=== PATIENT | female | born 1990 | race Two or more races ===

== ENCOUNTER 2022-12-25 00:08 | Emergency (ER) | payer OTHER, SELFPAY ==
--- NOTE | ~2022-12-25 | XR_ITS ---
EXAMINATION: XR CHEST CLINICAL INFORMATION: Acute chest pain COMPARISON: None available. TECHNIQUE: 2 views of the chest were obtained. FINDINGS: The lungs are clear with no focal consolidation. No evidence of pneumothorax, pulmonary edema, or pleural effusions. The cardiomediastinal silhouette is unremarkable. No acute osseous findings. XR/XR chest 2V IMPRESSION: No acute cardiopulmonary findings.
--- NOTE | 2022-12-25 00:15 | ECG_ITS ---
Test Reason : cp Blood Pressure : / mmHG Vent. Rate : 079 BPM Atrial Rate : 079 BPM P-R Int : 156 ms QRS Dur : 082 ms QT Int : 368 ms P-R-T Axes : 050 012 025 degrees QTc Int : 421 ms Normal sinus rhythm Normal ECG No previous ECGs available Referred By: Generic ED Physician Electronically Signed By:ERIKA BURLESON
[2022-12-25 00:24] VITALS: BP 111/54; PULSE 77; RESP 18; TEMP 36.7; O2SAT 100; BMI 35.6
[2022-12-25 00:40] LABS: MANUAL DIFF FLAG NO
[2022-12-25 00:41] LABS: Basophils Percent Auto 0.4 % (0-2); Eosinophils Absolute Auto 0.2 X10*3/uL (0.0-0.4); Eosinophils Percent Auto 2.7 % (0-4); Hematocrit 34.3 % (37.0-47.0); Hemoglobin 11.4 g/dl (12.0-16.0); Imm Gran Abs Auto 0.01 X10*3/uL (0.00-0.03); Imm Gran Pct Auto 0.2 % (0.0-0.4); Lymphocytes Absolute Auto 2.3 X10*3/uL (1.2-4.9); Lymphocytes Percent Auto 41.2 % (20-40); Mean Corpuscular HGB Conc 33.2 g/dl (31.0-35.0); Mean Corpuscular Hemoglobin 27.1 pg (27.0-33.0); Mean Corpuscular Volume 81.7 fL (80.0-98.0); Mean Platelet Volume 11.3 fL (9.4-12.3); Monocytes Absolute Auto 0.5 X10*3/uL (0.1-1.2); Monocytes Percent Auto 8.4 % (2-11); Neutrophils Absolute Auto 2.6 x10*3/uL (2.0-8.3); Neutrophils Percent Auto 47.1 % (45-73); Platelet Count 211 X10*3/uL (160-400); Red Cell Distribution Width 14.1 % (11.0-16.0); White Blood Count 5.5 X10*3/uL (4.8-10.8)
[2022-12-25 00:49] LABS: D Dimer High Sensitivity 235 NG/ML
[2022-12-25 00:53] LABS: Anion Gap 11 (12-20); Blood Urea Nitrogen 12 mg/dL (9-16); Calcium 8.8 mg/dL (8.4-10.2); Carbon Dioxide 24 mmol/L (22-29); Chloride 110 mmol/L (96-108); Creatinine Clr Calc Pharmacy 88.6; Estimated Glomerular Filt Rate > 60; Glucose Random 117 mg/dL (60-115); Potassium 3.8 mmol/L (3.3-5.1); Sodium 141 mmol/L (135-145)
[2022-12-25 01:05] VITALS: BP 119/56; PULSE 77; RESP 19; TEMP 36.4; O2SAT 100
[2022-12-25 01:08] LABS: Troponin-I High Sensitivity < 2.7 ng/L (<3.5-17.0)
--- NOTE | 2022-12-25 01:21 | ED.CHESTPAIN ---
HPI - Chest Pain General Chief Complaint: Chest Pain Stated Complaint: Chest Pain/Shortness of breath/Headache Time Seen by Provider: 12/25/22 01:12 Source: patient Mode of arrival: ambulatory Limitations: no limitations History of Present Illness HPI narrative: 32-year-old female with no major medical problems presents with chest pain and headache. Symptoms started approximately 8:00 a.m. this evening. The chest pain is substernal. She rates as moderate. It is sharp and intermittent. It radiates to bilateral shoulders. It is not associated with exertion. There are no clear relieving or exacerbating features. She denies any nausea, vomiting or shortness of breath associated with a. She has no history of PE or DVT. She does not smoke and she is not on an any oral contraceptives. She has no immediate relatives who have had a history of blood clots, DVT or PE. Patient has had this in the past but is typically associated with a panic attack. She denies having anxiety prior to her symptoms. Patient is also complaining of a generalized headache that is moderate in nature. It is not associated with photo or phonophobia. There is no neck pain or stiffness. She denies any fevers or chills. She denies any cough or congestion. Prior to arrival she took Tylenol 500 mg which did help her chest pain and her headache. Related Data Allergies Allergy/AdvReac Type Severity Reaction Status Date / Time oxycodone Allergy Hives Verified 12/25/22 00:29 [facility] Social History Social History Advance Directives: No Advance Directives Information Provided: Yes Physical Exam Vital Signs: Vital Signs: Last Vital Signs Temp 97.6 F 12/25/22 01:05 Pulse 77 12/25/22 01:05 Resp 19 12/25/22 01:05 BP 119/56 L 12/25/22 01:05 Pulse Ox 100 12/25/22 01:05 O2 Del Method Room Air 12/25/22 01:05 BMI result Body Mass Index 35.6 GEN: Well developed, no acute distress, alert, oriented HEENT: Normocephalic, atraumatic, normal external ears, nose appears normal, no oropharyngeal edema or exudates Eyes: Normal to appearance Neck: Supple, no lymphadenopathy Respiratory: Talks in complete sentences, no respiratory distress, clear to auscultation bilaterally Cardiovascular: Regular rate and rhythm, no murmurs rubs or gallops Abdomen: Soft, nontender, nondistended, no guarding, no rebound Back: No CVA tenderness Extremities: No clubbing cyanosis or edema Neurologic: No focal neurologic deficits, cranial nerves 2-12 intact, strength is 5/5 bilaterally Skin: No rash Course Course Course Narrative: 32-year-old female presents with chest pain and headache. Her examination is unremarkable. There is no evidence of meningitis. Her headache was not sudden onset, doubt subarachnoid hemorrhage. This is most likely a tension headache or sinus related headache. Patient is also complaining of chest pain. The pain is sharp and intermittent. Not associated with exertion and is more of an atypical chest pain. She has no cardiac risk factors and no significant family history of coronary artery disease or early sudden cardiac . There is no history of PE or DVT in her family or herself. Her perc criteria are 0. Her D-dimer is negative. Cardiac enzymes are also negative. This is approximately 5 hours since the onset of her symptoms. Coupled with an EKG that is nonischemic, is unlikely to be acute coronary syndrome or cardiac chest pain. At this point, patient should have a chest x-ray and the re-evaluation. Will provide patient with Tylenol and ibuprofen. Reevaluation(s) Reevaluation #1: Chest x-ray did not reveal any acute cardiopulmonary disease. Patient is feeling better at this time. I do not believe patient is having acute coronary syndrome. She was instructed to take Tylenol and ibuprofen as needed for pain and discomfort. However, should her symptoms worsen or become concerning in any way, she should return for re-evaluation immediately. Time: 02:02 Medications Administered Discontinued Medications Generic Name Dose Route Start Last Admin Trade Name Richq PRN Reason Stop Dose Admin Acetaminophen 650 mg 12/25/22 01:37 12/25/22 01:43 Acetaminophen 325 Mg Tablet PO 12/25/22 01:38 650 mg ONCE ONE Administration Ibuprofen 600 mg 12/25/22 01:37 12/25/22 01:43 Ibuprofen 600 Mg Tablet PO 12/25/22 01:38 600 mg ONCE ONE Administration Medical Decision Making Medical Decision Making MDM Narrative: 32-year-old female presents with chest pain and headache. Her examination is unremarkable. There is no evidence of meningitis. Her headache was not sudden onset, doubt subarachnoid hemorrhage. This is most likely a tension headache or sinus related headache. Patient is also complaining of chest pain. The pain is sharp and intermittent. Not associated with exertion and is more of an atypical chest pain. She has no cardiac risk factors and no significant family history of coronary artery disease or early sudden cardiac . There is no history of PE or DVT in her family or herself. Her perc criteria are 0. Her D-dimer is negative. Cardiac enzymes are also negative. This is approximately 5 hours since the onset of her symptoms. Coupled with an EKG that is nonischemic, is unlikely to be acute coronary syndrome or cardiac chest pain. At this point, patient should have a chest x-ray and the re-evaluation. Will provide patient with Tylenol and ibuprofen Differential Diagnosis Differential Diagnoses: The differential diagnosis associated with the presentation includes (Atypical chest pain, has occurred, reflux, panic/anxiety, cardiac, pulmonary, PE, headache, migraine, tension headache) Headache, atypical chest pain Admission/Observation Consideration of admission/observation: Escalation of care including admission/observation considered Lab Data MDM Lab Attestation statement: I reviewed the patient's lab results. 12/25/22 00:35 12/25/22 00:35 Labs: Lab Results 12/25/22 12/25/22 12/25/22 Range/Units 00:35 00:35 00:35 WBC 5.5 (4.8-10.8) X10*3/uL RBC 4.20 (4.20-5.50) X10*6/uL Hgb 11.4 L (12.0-16.0) g/dl Hct 34.3 L (37.0-47.0) % MCV 81.7 (80.0-98.0) fL MCH 27.1 (27.0-33.0) pg MCHC 33.2 (31.0-35.0) g/dl RDW 14.1 (11.0-16.0) % Plt Count 211 (160-400) X10*3/uL MPV 11.3 (9.4-12.3) fL Immature Gran % (Auto) 0.2 (0.0-0.4) % Neut % (Auto) 47.1 (45-73) % Lymph % (Auto) 41.2 H (20-40) % [place] % (Auto) 8.4 (2-11) % Eos % (Auto) 2.7 (0-4) % Baso % (Auto) 0.4 (0-2) % Lymph # (Auto) 2.3 (1.2-4.9) X10*3/uL [place] # (Auto) 0.5 (0.1-1.2) X10*3/uL Eos # (Auto) 0.2 (0.0-0.4) X10*3/uL Baso # (Auto) 0.0 (0.0-0.2) X10*3/uL Abs Immat Gran (auto) 0.01 (0.00-0.03) X10*3/uL Absolute Neuts (auto) 2.6 (2.0-8.3) x10*3/uL Absolute Nucleated RBC 0.000 (0.0-0.012) X10*3/uL Nucleated RBC % (auto) 0.0 (0.0-0.2) /100WBC D-Dimer High Sensitivty NG/ML Sodium 141 (135-145) mmol/L Potassium 3.8 (3.3-5.1) mmol/L Chloride 110 H (96-108) mmol/L Carbon Dioxide 24 (22-29) mmol/L Anion Gap 11 L (12-20) BUN 12 (9-16) mg/dL Creatinine 0.75 (0.5-1.4) mg/dL Estim Creat Clear Calc 88.6 Estimated GFR > 60 Random Glucose 117 H (60-115) mg/dL Calcium 8.8 (8.4-10.2) mg/dL Troponin I High Sens < 2.7 (<3.5-17.0) ng/L 12/25/22 Range/Units 00:35 WBC (4.8-10.8) X10*3/uL RBC (4.20-5.50) X10*6/uL Hgb (12.0-16.0) g/dl Hct (37.0-47.0) % MCV (80.0-98.0) fL MCH (27.0-33.0) pg MCHC (31.0-35.0) g/dl RDW (11.0-16.0) % Plt Count (160-400) X10*3/uL MPV (9.4-12.3) fL Immature Gran % (Auto) (0.0-0.4) % Neut % (Auto) (45-73) % Lymph % (Auto) (20-40) % [place] % (Auto) (2-11) % Eos % (Auto) (0-4) % Baso % (Auto) (0-2) % Lymph # (Auto) (1.2-4.9) X10*3/uL [place] # (Auto) (0.1-1.2) X10*3/uL Eos # (Auto) (0.0-0.4) X10*3/uL Baso # (Auto) (0.0-0.2) X10*3/uL Abs Immat Gran (auto) (0.00-0.03) X10*3/uL Absolute Neuts (auto) (2.0-8.3) x10*3/uL Absolute Nucleated RBC (0.0-0.012) X10*3/uL Nucleated RBC % (auto) (0.0-0.2) /100WBC D-Dimer High Sensitivty 235 NG/ML Sodium (135-145) mmol/L Potassium (3.3-5.1) mmol/L Chloride (96-108) mmol/L Carbon Dioxide (22-29) mmol/L Anion Gap (12-20) BUN (9-16) mg/dL Creatinine (0.5-1.4) mg/dL Estim Creat Clear Calc Estimated GFR Random Glucose (60-115) mg/dL Calcium (8.4-10.2) mg/dL Troponin I High Sens (<3.5-17.0) ng/L Independent Interpretation I performed an independent interpretation of an: EKG (Normal sinus rhythm heart rate 79, normal intervals, no acute ST elevations or depressions, nonspecific T-wave change new lead 3) and Plain X-Ray (Chest: No acute cardiopulmonary disease) Discharge Plan Discharge Clinical Impression: Atypical chest pain, Headache Patient Disposition: Home, Self-Care Instructions: Chest Pain (ED), Acute Headache (DC) Referrals: Tammy Simmons MD [Primary Care Provider] -
[2022-12-25] MEDS: Acetaminophen 325 MG TABLET 650 MG PO (01:43)
[2022-12-25] MEDS: Ibuprofen 600 MG TABLET PO (01:43)
== END 2022-12-25 02:25 | disposition home or self-care (01) ==
PROVIDERS: Emergency Provider Emergency Medicine; PCP Internal Medicine
DX: R07.89 Other chest pain (principal); R51.9 Headache, unspecified
CPT/HCPCS: 36415; 71046; 80048; 84484; 85025; 85379; 93005; 99284

== ENCOUNTER 2023-09-10 23:41 | Emergency (ER) | payer OTHER, SELFPAY ==
[2023-09-10 23:54] VITALS: BP 130/75; PULSE 81; RESP 18; TEMP 36.8; O2SAT 99; BMI 37.6
--- NOTE | 2023-09-10 23:58 | ED.ABDPAIN ---
HPI - Abdominal Pain General Chief Complaint: Abdominal Pain Stated Complaint: dizziness x3 days, cramps, possible uti Time Seen by Provider: 09/10/23 23:50 Source: patient Mode of arrival: ambulatory Limitations: no limitations History of Present Illness HPI narrative: a 32-year-old female came in for evaluation frequency urination, no dysuria, no blood in the urine, patient declined chance of being , patient also had been complaining of lower abdominal pain radiates to the back, Sexually active with 1 partner no risk for STDs no vaginal bleed or discharge. Patient also been having dizziness / lightheadedness for the past 2- 3 days, no LOC, no CP, no SOB. Related Data Allergies Allergy/AdvReac Type Severity Reaction Status Date / Time oxycodone Allergy Hives Verified 12/25/22 00:29 shellfish derived Allergy Hives Verified 09/10/23 23:56 Review of Systems Review of Systems All other systems are reviewed and are negative Constitutional: Reports as per HPI and Reports no additional constitutional complaints Eyes: Reports as per HPI and Reports no additional eye complaints Reports system reviewed and no additional complaints, except as documented Cardiovascular: Reports as per HPI and Reports no additional cardiovascular complaints Respiratory: Reports as per HPI and Reports no additional respiratory complaints Gastrointestinal: Reports as per HPI and Reports no additional gastrointestinal complaints Genitourinary: Reports no additional female genitourinary complaints Musculoskeletal: Reports no additional musculoskeletal complaints Skin/Breast: Reports system reviewed and no additional complaints, except as docu Psychiatric: Reports no additional psychiatric complaints Endocrine: Reports no additional endocrine complaints Hematologic/Lymphatic: Reports no additional hematologic/lymphatic complaints Allergic/Immunologic: Reports no additional allergic/immunologic complaints Reports system reviewed and no additional complaints, except as documented and Reports Abnormal speech present [facility] Social History Social History Advance Directives: No Advance Directives Information Provided: No Physical Exam ED Vital Signs: Vital Signs - 24 hr 09/10/23 23:54 09/11/23 00:00 09/11/23 02:36 Temperature 98.3 F 98.4 F 98.3 F Pulse Rate 81 86 80 Respiratory Rate 18 16 16 Blood Pressure 130/75 118/64 110/56 L Pulse Oximetry 99 96 100 Oxygen Delivery Method Room Air Room Air Room Air BMI result Body Mass Index 37.6 Vital signs have been reviewed and appear to be correct. Blood pressure elevated. Heart rate normal. Respiratory rate normal. Temperature normal. Oxygen saturation normal. Appearance: Alert. Oriented X3. No acute distress. Head: Normal external exam. Normocephalic. Atraumatic. No Roberts signs noted. No raccoon eyes noted Eyes: PERRLA. EOMI. Conjunctiva and sclera normal. Eyelids normal. ENT: TM's Normal. Pharynx normal. Uvula midline. Moist mucous membranes. No trismus noted. No drooling noted. No muffled voice noted. Neck: Normal inspection. Neck supple. FROM. No adenopathy. Thyroid Normal. No meningeal signs. No neck mass noted. CVS: Normal heart rate and rhythm. Heart sound normal. No murmurs noted. Pulses normal throughout. Respiratory: No respiratory distress. Painless inspiration. Breath sounds normal. No wheezes/rales/rhonchi noted. Chest nontender. No accessory muscle usage noted or decreased air movement noted. Abdomen: Soft , mild suprapubic tenderness, no guarding, no rebound tenderness.Bowel sounds normal in all 4 quadrants. No distention noted. No organomegaly noted. No visible injury noted. Back: No CVA tenderness. Full range of motion noted. Skin: Skin warm and dry. Normal skin color. Normal skin turgor. No rashes/lesions/lacerations noted. Extremities: No lower extremity edema. Extremities exhibit normal range of motion. Extremities nontender. Neuro: Oriented X 3. Cranial nerve exam: II-XII are grossly intact No motor deficit. No sensory deficit. Reflexes normal. Course Reevaluation(s) Reevaluation #1: Abdominal pain with UTI symptoms. Labs today at baseline with no UA evidence of UTI. Will reassure the patient and instructed follow-up with PCP if symptoms persist. Time: 01:23 Medical Decision Making Differential Diagnosis Differential Diagnoses: The differential diagnosis associated with the presentation includes ( Acute appendicitis, colitis, diverticulitis, obstructive uropathy, UTI, pyelonephritis, .) Admission/Observation Consideration of admission/observation: Escalation of care including admission/observation considered Lab Data MDM Lab Attestation statement: I reviewed the patient's lab results. 09/11/23 00:08 09/11/23 00:08 Labs: Lab Results 09/11/23 09/11/23 Range/Units 00:08 00:46 WBC 7.3 (4.8-10.8) X10*3/uL RBC 4.49 (4.20-5.50) X10*6/uL Hgb 11.9 L (12.0-16.0) g/dl Hct 36.3 L (37.0-47.0) % MCV 80.8 (80.0-98.0) fL MCH 26.5 L (27.0-33.0) pg MCHC 32.8 (31.0-35.0) g/dl RDW 14.3 (11.0-16.0) % Plt Count 211 (160-400) X10*3/uL MPV 11.3 (9.4-12.3) fL Immature Gran % (Auto) 0.3 (0.0-0.4) % Neut % (Auto) 52.0 (45-73) % Lymph % (Auto) 36.6 (20-40) % [place] % (Auto) 8.9 (2-11) % Eos % (Auto) 1.9 (0-4) % Baso % (Auto) 0.3 (0-2) % Lymph # (Auto) 2.7 (1.2-4.9) X10*3/uL [place] # (Auto) 0.7 (0.1-1.2) X10*3/uL Eos # (Auto) 0.1 (0.0-0.4) X10*3/uL Baso # (Auto) 0.0 (0.0-0.2) X10*3/uL Abs Immat Gran (auto) 0.02 (0.00-0.03) X10*3/uL Absolute Neuts (auto) 3.8 (2.0-8.3) x10*3/uL Absolute Nucleated RBC 0.000 (0.0-0.012) X10*3/uL Nucleated RBC % (auto) 0.0 (0.0-0.2) /100WBC Sodium 136 (135-145) mmol/L Potassium 3.8 (3.3-5.1) mmol/L Chloride 107 (96-108) mmol/L Carbon Dioxide 21 L (22-29) mmol/L Anion Gap 12 (12-20) BUN 13 (9-16) mg/dL Creatinine 0.66 (0.5-1.4) mg/dL Estim Creat Clear Calc 103.7 Estimated GFR > 60 Random Glucose 102 (60-115) mg/dL Calcium 9.1 (8.4-10.2) mg/dL Total Bilirubin 0.2 (0.0-1.0) mg/dL Direct Bilirubin < 0.2 (0.0-0.5) mg/dL AST 14 (5-31) U/L ALT 14 (0-31) U/L Alkaline Phosphatase 59 (39-117) U/L Total Protein 7.5 (6.5-8.0) g/dL Albumin 4.1 (3.5-5.0) g/dL Lipase 53 (8-78) U/L Urine Color Yellow Urine Appearance Clear Urine pH 5.5 (5.0-9.0) Ur Specific [place] 1.020 (1.005-1.025) Urine Protein Negative (Neg-Trace) mg/dL Urine Glucose (UA) Negative (Negative) mg/dL Urine Ketones Negative (Negative) mg/dL Urine Blood Negative (Negative) Urine Nitrite Negative (Negative) Ur Leukocyte Esterase Negative (Negative) Urine Test NEGATIVE (NEGATIVE) Independent Interpretation I performed an independent interpretation of an: CT Scan ( No acute intra-abdominal pathology.) Radiology Impression Discussion of test interpretation with radiology: I have reviewed the radiologist's reading. (1. Small tubular structure along the cecum is likely a normal appendix. No infiltrative change in the right lower quadrant. 2. There is a 2.5 mm nonobstructing calculus lower pole left kidney. There is no hydronephrosis. 3. Diffuse fatty change of the liver. ) Discharge Plan Discharge Clinical Impression: Abdominal pain Patient Disposition: Home, Self-Care Instructions: Abdominal Pain (ED) Referrals: Tammy Simmons MD [Primary Care Provider] -
[2023-09-11] VITALS: BP 118/64; PULSE 86; RESP 16; TEMP 36.9; O2SAT 96
--- NOTE | 2023-09-11 00:15 | MHC.EDTECH ---
THIS PCT JUST ASSUMED CARE OF PT ,EKG TAKEN AND WAS READ BY PROVIDER ,VITALS TAKEN ,PT WAS HOOKED UP TO ENGINEERING JOB TITLES,PATIENT GOT CHANGE INTO HOSPITAL ATTIRE ,BLOOD DRAWN AND SENT TO LAB .
--- NOTE | 2023-09-11 00:48 | MHC.EDTECH ---
PATIENT URINE SAMPLE COLLECTED AND SENT TO LAB .
[2023-09-11 02:36] VITALS: BP 110/56; PULSE 80; RESP 16; TEMP 36.8; O2SAT 100
== END 2023-09-11 04:23 | disposition home or self-care (01) ==
PROVIDERS: Emergency Provider Emergency Medicine; PCP Internal Medicine
DX: R10.30 Lower abdominal pain, unspecified (principal); R42 Dizziness and giddiness; R35.0 Frequency of micturition
CPT/HCPCS: 36415; 74176; 80048; 80076; 81003; 81025; 83690; 85025; 93005; 99284

== ENCOUNTER → 2023-09-10 23:56 | Outpatient (BNV) | payer OTHER, SELFPAY | PROVIDERS: Emergency Provider Emergency Medicine; PCP Internal Medicine; Visit Provider Internal Medicine Cardiovascular Disease | DX: R42 Dizziness and giddiness (principal) | CPT/HCPCS: 93010 ==

== ENCOUNTER 2023-09-27 13:20 | Emergency (ER) | payer OTHER, SELFPAY ==
--- NOTE | ~2023-09-27 | US_ITS ---
EXAMINATION: US PELVIS CLINICAL INFORMATION: Right lower quadrant pain. Vaginal bleeding. COMPARISON: None available. TECHNIQUE: Ultrasound of the pelvis is performed using transabdominal transducers along with Doppler. Patient declined transvaginal imaging. FINDINGS: Uterus: Uterus is anteverted and retroflexed. The uterus is anteverted and measures 10.9 x 4.5 x 7.2 cm. The double wall endometrial thickness is 0.6 mm. The uterus is smooth in contour and has normal myometrial echogenicity. No visible fibroid. Adnexa: Both ovaries are visualized. There is normal color flow to the adnexa. There is no ovarian torsion. There is no pelvic ascites or fluid collection. Right ovary measures 3.1 x 2.1 x 2.7 cm. 9.2 mL Left ovary measures 2.7 x 2 x 1.9 cm. 5.4 mL US/US pelvic complete IMPRESSION: Normal ultrasound of pelvis.
[2023-09-27 13:32] VITALS: BP 138/77; PULSE 98; RESP 19; TEMP 36.6; O2SAT 98; BMI 37.7
--- NOTE | 2023-09-27 13:33 | ED_ITS ---
HPI - Abdominal Pain General Chief Complaint: Abdominal Pain Stated Complaint: Abd Pain Radiating to Back Time Seen by Provider: 09/28/23 01:31 Source: patient Mode of arrival: ambulatory History of Present Illness HPI narrative: 33-year-old female reports lower abdominal discomfort and urinary frequency but denies any fevers, chills and on further questioning she states that she has had bilateral discomfort that seems to wrap around the middle of her abdomen at the level of the umbilicus. Related Data Allergies Allergy/AdvReac Type Severity Reaction Status Date / Time oxycodone Allergy Hives Verified 09/27/23 13:31 shellfish derived Allergy Hives Verified 09/27/23 13:31 Review of Systems Review of Systems Pertinent positives and negatives as stated in HPI PMFSH Past Medical History Source: nursing notes reviewed Social History Social History Advance Directives: No Advance Directives Information Provided: No Physical Exam ED Vital Signs: Vital Signs - 24 hr 09/27/23 13:32 09/28/23 01:07 09/28/23 03:40 Temperature 98 F 97.7 F 97.8 F Pulse Rate 98 71 77 Respiratory Rate 19 14 14 Blood Pressure 138/77 125/84 142/83 H Pulse Oximetry 98 99 98 Oxygen Delivery Method Room Air Room Air Room Air BMI result Body Mass Index 37.7 VITAL SIGNS: Reviewed. GENERAL: Well developed, well nourished, in no acute distress. HEAD: Normocephalic/atraumatic EYES: PERRLA, EOMI LUNGS: Normal breath sounds. No adventitious sounds or accessory muscle use. SpO2<98> CARDIOVASCULAR: Regular rate and rhythm without noted murmurs ABDOMEN: Soft, non-tender, non-distended with bowel sounds. MUSCULOSKELETAL: No tenderness, deformities, or effusions noted on gross inspection. EXTREMITIES: No cyanosis, clubbing or edema. SKIN: Inspection of the skin reveals no rashes NEUROLOGIC: Alert and oriented x 4. Strength and sensation to light touch were grossly intact x 4. Course Course Course Narrative: RME: 33 year-old F w/ PMHx presenting to the ED c/o RLQ abdominal pain radiating to back, constant x1hr. Patient was recently seen for similar sx negative workup including labs/CT. LMP now, but has been bleeding x2 weeks, also reports clear vaginal discharge Labs, STI testing, UA & pelvis US ordered Full HPI, ROS and PE to be performed by primary ED provider. Medical Decision Making Medical Decision Making [facility] Narrative: 33-year-old female with history and clinical presentation, DDX: Ectopic, UTI, renal colic, ovarian torsion I reviewed all investigations and hematologic indices are negative for leukocytosis or left shift, there is a stable normocytic anemia no thrombocytopenia. Chemistry Anesthesia not demonstrate any ABIMBOLA or electrolyte/liver enzyme derangements. Urinalysis is negative for UTI or hematuria. STI screening is negative. Ultrasound does not demonstrate any ovarian cysts or torsion. My interpretation is patient may have been experiencing pain associated with her back and radiated into the abdominal area because otherwise there were no acute findings to better explain patient's symptoms. All results and findings discussed with her at bedside and she is otherwise discharged home with instructions follow-up with primary care doctor. Differential Diagnosis Differential Diagnoses: The differential diagnosis associated with the presentation includes Please see the discussion above Admission/Observation Consideration of admission/observation: Escalation of care including admission/observation considered Please see the discussion above Lab Data [facility] Lab Attestation statement: I reviewed the patient's lab results. Please see the discussion above 09/27/23 14:28 09/27/23 14:28 Labs: Lab Results 09/27/23 09/27/23 09/27/23 Range/Units 14:28 14:31 18:58 WBC 5.3 (4.8-10.8) X10*3/uL RBC 4.46 (4.20-5.50) X10*6/uL Hgb 11.8 L (12.0-16.0) g/dl Hct 35.9 L (37.0-47.0) % MCV 80.5 (80.0-98.0) fL MCH 26.5 L (27.0-33.0) pg MCHC 32.9 (31.0-35.0) g/dl RDW 14.2 (11.0-16.0) % Plt Count 225 (160-400) X10*3/uL MPV 11.1 (9.4-12.3) fL Immature Gran % (Auto) 0.0 (0.0-0.4) % Neut % (Auto) 57.2 (45-73) % Lymph % (Auto) 33.0 (20-40) % [place] % (Auto) 6.8 (2-11) % Eos % (Auto) 2.4 (0-4) % Baso % (Auto) 0.6 (0-2) % Lymph # (Auto) 1.8 (1.2-4.9) X10*3/uL [place] # (Auto) 0.4 (0.1-1.2) X10*3/uL Eos # (Auto) 0.1 (0.0-0.4) X10*3/uL Baso # (Auto) 0.0 (0.0-0.2) X10*3/uL Abs Immat Gran (auto) 0.00 (0.00-0.03) X10*3/uL Absolute Neuts (auto) 3.0 (2.0-8.3) x10*3/uL Absolute Nucleated RBC 0.000 (0.0-0.012) X10*3/uL Nucleated RBC % (auto) 0.0 (0.0-0.2) /100WBC Sodium 142 (135-145) mmol/L Potassium 3.9 (3.3-5.1) mmol/L Chloride 107 (96-108) mmol/L Carbon Dioxide 28 (22-29) mmol/L Anion Gap 11 L (12-20) BUN 16 (9-16) mg/dL Creatinine 0.68 (0.5-1.4) mg/dL Estim Creat Clear Calc 99.8 Estimated GFR > 60 Random Glucose 96 (60-115) mg/dL Calcium 9.1 (8.4-10.2) mg/dL Magnesium 2.0 (1.6-2.6) mg/dL Total Bilirubin 0.2 (0.0-1.0) mg/dL Direct Bilirubin < 0.2 (0.0-0.5) mg/dL AST 15 (5-31) U/L ALT 17 (0-31) U/L Alkaline Phosphatase 66 (39-117) U/L Total Protein 7.8 (6.5-8.0) g/dL Albumin 4.2 (3.5-5.0) g/dL Lipase 27 (8-78) U/L Urine Color Yellow Urine Appearance Turbid Urine pH 7.5 (5.0-9.0) Ur Specific [place] 1.025 (1.005-1.025) Urine Protein Negative (Neg-Trace) mg/dL Urine Glucose (UA) Negative (Negative) mg/dL Urine Ketones Negative (Negative) mg/dL Urine Blood Trace H (Negative) Urine Nitrite Negative (Negative) Ur Leukocyte Esterase Negative (Negative) Urine RBC 0-2 (0-2) /HPF Urine WBC 0-5 (0-5) /HPF Ur Squamous Epith Cells 0-2 (0-2) /HPF Urine Bacteria None Seen (None Seen) Hyaline Casts 0-2 (0-2) /LPF Urine Test NEGATIVE (NEGATIVE) Chlam trachomat DNA PCR NOT DETECTED (Not Detect.) N.gonorrhoeae DNA (PCR) NOT DETECTED (Not Detect.) Radiology Impression Discussion of test interpretation with radiology: I have reviewed the radiologist's reading. Radiologist Impression: Please see the discussion above External Record Review External record reviewed: Outpatient record, Prior outpatient labs and Prior outpatient radiology Critical Care Time Critical Care Time Critical Care Time: Yes Total Critical Care Time: 30 Attestation: I personally attest to this time spent taking care of the patient. Discharge Plan Discharge Clinical Impression: Abdominal pain Patient Disposition: Home, Self-Care Instructions: Abdominal Pain (ED) Additional Instructions: 1. You had a negative workup today, I recommend [id number] Tylenol/ibuprofen as needed for pain control. 2. Please follow-up with primary care doctor by calling the office this morning. Return to the ER for any worsening symptoms. Referrals: Tammy Simmons MD [Primary Care Provider] - Stand Alone Forms: Work/School Release Interventions: ED Discharge Assessment Last Done: 09/28/23 04:21 Discharge Date/Time: 09/28/23 04:21
[2023-09-27 14:40] LABS: MANUAL DIFF FLAG NO
[2023-09-27 14:44] LABS: Basophils Percent Auto 0.6 % (0-2); Eosinophils Absolute Auto 0.1 X10*3/uL (0.0-0.4); Eosinophils Percent Auto 2.4 % (0-4); Hematocrit 35.9 % (37.0-47.0); Hemoglobin 11.8 g/dl (12.0-16.0); Lymphocytes Absolute Auto 1.8 X10*3/uL (1.2-4.9); Mean Corpuscular HGB Conc 32.9 g/dl (31.0-35.0); Mean Corpuscular Hemoglobin 26.5 pg (27.0-33.0); Mean Corpuscular Volume 80.5 fL (80.0-98.0); Mean Platelet Volume 11.1 fL (9.4-12.3); Monocytes Absolute Auto 0.4 X10*3/uL (0.1-1.2); Monocytes Percent Auto 6.8 % (2-11); Neutrophils Percent Auto 57.2 % (45-73); Platelet Count 225 X10*3/uL (160-400); Red Blood Count 4.46 X10*6/uL (4.20-5.50); Red Cell Distribution Width 14.2 % (11.0-16.0); White Blood Count 5.3 X10*3/uL (4.8-10.8)
[2023-09-27 14:45] LABS: Appearance Urine Turbid; Color Urine Yellow; Glucose Urine UA Negative (Negative); Leukocyte Esterase Urine Negative (Negative); Nitrite Urine Negative (Negative); PH 7.5 (5.0-9.0); Specific Gravity - Urine 1.025 (1.005-1.025); UMIC TRIGGER UACC YES; Urine Blood Trace (Negative); Urine Ketones Negative (Negative); Urine Protein Negative (Neg-Trace)
[2023-09-27 14:48] LABS: Bacteria Urine None Seen (None Seen); Hyaline Casts Urine 0-2 /LPF (0-2); RBC Urine 0-2 /HPF (0-2); Squamous Epithelial Cell Urine 0-2 /HPF (0-2); WBC Urine 0-5 /HPF (0-5)
[2023-09-27 14:52] LABS: UPreg QC Valid YES; Urine Pregnancy NEGATIVE (NEGATIVE)
[2023-09-27 15:11] LABS: Alanine Aminotransferase 17 U/L (0-31); Albumin Level 4.2 g/dL (3.5-5.0); Alkaline Phosphatase 66 U/L (39-117); Anion Gap 11 (12-20); Aspartate Amino Transferase 15 U/L (5-31); Bilirubin Direct < 0.2 mg/dL (0.0-0.5); Bilirubin Total 0.2 mg/dL (0.0-1.0); Blood Urea Nitrogen 16 mg/dL (9-16); Calcium 9.1 mg/dL (8.4-10.2); Carbon Dioxide 28 mmol/L (22-29); Chloride 107 mmol/L (96-108); Creatinine Clr Calc Pharmacy 99.8; Estimated Glomerular Filt Rate > 60; Glucose Random 96 mg/dL (60-115); Potassium 3.9 mmol/L (3.3-5.1); Sodium 142 mmol/L (135-145); Total Protein 7.8 g/dL (6.5-8.0)
[2023-09-27 15:48] LABS: Lipase 27 U/L (8-78)
[2023-09-28 01:07] VITALS: BP 125/84; PULSE 71; RESP 14; TEMP 36.5; O2SAT 99
[2023-09-28 02:02] LABS: CT PCR NOT DETECTED (Not Detect.); NG PCR NOT DETECTED (Not Detect.)
[2023-09-28 03:40] VITALS: BP 142/83; PULSE 77; RESP 14; TEMP 36.6; O2SAT 98
== END 2023-09-28 04:21 | disposition home or self-care (01) ==
PROVIDERS: Physician Assistant; Emergency Provider Student in an Organized Health Care Education/Training Program; PCP Internal Medicine
DX: R10.31 Right lower quadrant pain (principal); R35.0 Frequency of micturition; R10.2 Pelvic and perineal pain; N93.8 Other specified abnormal uterine and vaginal bleeding; M54.50 Low back pain, unspecified; Z79.899 Other long term (current) drug therapy
CPT/HCPCS: 0353U; 36415; 76856; 80048; 80076; 81001; 81025; 83690; 83735; 85025; 99284

== ENCOUNTER 2023-11-07 23:03 | Emergency (ER) | payer OTHER, SELFPAY ==
[2023-11-07 23:19] VITALS: BP 119/78; PULSE 97; RESP 17; TEMP 36.6; O2SAT 99; BMI 36.4
[2023-11-07 23:54] LABS: IDNOW Serial# 08D9AD1C; IDNOW Serial# 9DB6401D; Influenza A Positive (Negative); Strep A Nucleic Acid Negative (Negative)
[2023-11-08] LABS: COVID-19 Test Negative (Negative); IDNOW Serial# 152EDE1D; Influenza B2 Negative (Negative)
--- NOTE | 2023-11-08 00:16 | ED_ITS ---
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 Related Data Allergies Allergy/AdvReac Type Severity Reaction Status Date / Time oxycodone Allergy Hives Verified 11/07/23 23:18 shellfish derived Allergy Hives Verified 11/07/23 23:18 Review of Systems Review of Systems: All other systems are reviewed and are negative Constitutional: Reports as per HPI and Reports no additional constitutional complaints Eyes: Reports as per HPI and Reports no additional eye complaints Reports system reviewed and no additional complaints, except as documented Cardiovascular: Reports as per HPI and Reports no additional cardiovascular complaints Respiratory: Reports as per HPI and Reports no additional respiratory complaints Gastrointestinal: Reports as per HPI and Reports no additional gastrointestinal complaints Genitourinary: Reports no additional female genitourinary complaints Musculoskeletal: Reports no additional musculoskeletal complaints Skin/Breast: Reports system reviewed and no additional complaints, except as docu Psychiatric: Reports no additional psychiatric complaints Endocrine: Reports no additional endocrine complaints Hematologic/Lymphatic: Reports no additional hematologic/lymphatic complaints Allergic/Immunologic: Reports no additional allergic/immunologic complaints Reports system reviewed and no additional complaints, except as documented and Reports Abnormal speech present [facility] Social History Social History Advance Directives: No Advance Directives Information Provided: Yes Physical Exam Vital Signs: Vital Signs: Last Vital Signs Temp 98 F 11/07/23 23:19 Pulse 97 11/07/23 23:19 Resp 17 11/07/23 23:19 BP 119/78 11/07/23 23:19 Pulse Ox 99 11/07/23 23:19 O2 Del Method Room Air 11/07/23 23:19 BMI result Body Mass Index 36.4 Vital signs have been reviewed and appear to be correct. Blood pressure elevated. Heart rate normal. Respiratory rate normal. Temperature normal. Oxygen saturation normal. Appearance: Alert. Oriented X3. No acute distress. Head: Normal external exam. Normocephalic. Atraumatic. No Roberts signs noted. No raccoon eyes noted Eyes: PERRLA. EOMI. Conjunctiva and sclera normal. Eyelids normal. ENT: TM's Normal. Pharynx normal. Uvula midline. Moist mucous membranes. No trismus noted. No drooling noted. No muffled voice noted. Neck: Normal inspection. Neck supple. FROM. No adenopathy. Thyroid Normal. No meningeal signs. No neck mass noted. CVS: Normal heart rate and rhythm. Heart sound normal. No murmurs noted. Pulses normal throughout. Respiratory: No respiratory distress. Painless inspiration. Breath sounds normal. No wheezes/rales/rhonchi noted. Chest nontender. No accessory muscle usage noted or decreased air movement noted. Abdomen: Soft and nontender. Bowel sounds normal in all 4 quadrants. No distention noted. No organomegaly noted. No visible injury noted. Back: No CVA tenderness. Full range of motion noted. Skin: Skin warm and dry. Normal skin color. Normal skin turgor. No rashes/lesions/lacerations noted. Extremities: No lower extremity edema. Extremities exhibit normal range of motion. Extremities nontender. Neuro: Oriented X 3. Cranial nerve exam: II-XII are grossly intact No motor deficit. No sensory deficit. Reflexes normal. Course Reevaluation(s) Reevaluation #1: Influenza a patient work in the healthcare as a NETWORK SYSTEMS ENGINEER. Patient was instructed to wear mask at all times, keep social distancing, wear a face mask at all times. Time: 00:19 Medical Decision Making Differential Diagnosis Differential Diagnoses: The differential diagnosis associated with the presentation includes (Influenza a influenza B, RSV, COVID-19 infection.) Admission/Observation Consideration of admission/observation: Escalation of care including admission/observation considered Lab Data MDM Lab Attestation statement: I reviewed the patient's lab results. Labs: Lab Results 11/07/23 Range/Units 23:33 COVID-19 (DANA) Negative (Negative) COVID-19 Clin Com See Note Influenza Type A (LORNE) Positive A (Negative) Influenza Type B (LORNE) Negative (Negative) Influenza A & B Note See Note S. pyogenes GrpA LORNE Negative (Negative) Discharge Plan Discharge Clinical Impression: Influenza Patient Disposition: Home, Self-Care Instructions: Influenza (ED) Referrals: Tammy Simmons MD [Primary Care Provider] - Stand Alone Forms: Work/School Release
== END 2023-11-08 00:33 | disposition home or self-care (01) ==
PROVIDERS: Emergency Provider Emergency Medicine; PCP Internal Medicine
DX: J11.1 Influenza due to unidentified influenza virus with other respiratory manifestations (principal); Z11.52 Encounter for screening for COVID-19
CPT/HCPCS: 87502; 87635; 87651; 99282; 99283

== ENCOUNTER 2024-03-27 22:06 | Emergency (ER) | payer OTHER, SELFPAY ==
--- NOTE | ~2024-03-27 | US_ITS ---
EXAMINATION: US PELVIS CLINICAL INFORMATION: pelvic pain ?ovarian cyst COMPARISON: 09/27/2023 TECHNIQUE: Ultrasound of the pelvis is performed using both transabdominal and transvaginal transducers along with Doppler. Transvaginal exam was declined by the patient. FINDINGS: Uterus: The uterus is anteverted and measures 11.2 x 5.3 x 6.0 endometrial thickness is normal (1.3 cm) and secretory phase with diffuse homogeneity. No focal endometrial abnormalities. The uterus is smooth in contour and has normal myometrial echogenicity. No visible fibroid. Adnexa: Both ovaries are visualized. There is normal color flow to the adnexa. There is no ovarian torsion. There is no pelvic ascites or fluid collection. Right ovary measures 3 x 2.2 x 2.8 cm. No cysts or lesions. Left ovary measures 2.3 x 1.3 x 2.1 cm. No cysts or lesions. US/US pelvic complete IMPRESSION: Normal pelvic ultrasound.
[2024-03-27 22:10] VITALS: BP 119/79; PULSE 73; RESP 16; TEMP 36.9; O2SAT 99; BMI 34.4
[2024-03-27 22:33] LABS: MANUAL DIFF FLAG NO
[2024-03-27 22:39] LABS: Basophils Percent Auto 0.4 % (0-2); Eosinophils Absolute Auto 0.2 X10*3/uL (0.0-0.4); Eosinophils Percent Auto 2.5 % (0-4); Hematocrit 37.2 % (37.0-47.0); Hemoglobin 12.6 g/dl (12.0-16.0); Imm Gran Abs Auto 0.01 X10*3/uL (0.00-0.03); Imm Gran Pct Auto 0.1 % (0.0-0.4); Lymphocytes Absolute Auto 2.8 X10*3/uL (1.2-4.9); Lymphocytes Percent Auto 39.2 % (20-40); Mean Corpuscular HGB Conc 33.9 g/dl (31.0-35.0); Mean Corpuscular Hemoglobin 27.1 pg (27.0-33.0); Mean Platelet Volume 10.9 fL (9.4-12.3); Monocytes Absolute Auto 0.4 X10*3/uL (0.1-1.2); Neutrophils Absolute Auto 3.7 x10*3/uL (2.0-8.3); Neutrophils Percent Auto 51.8 % (45-73); Platelet Count 203 X10*3/uL (160-400); Red Blood Count 4.65 X10*6/uL (4.20-5.50); Red Cell Distribution Width 14.6 % (11.0-16.0); White Blood Count 7.2 X10*3/uL (4.8-10.8)
[2024-03-27 22:40] LABS: Appearance Urine Clear; Color Urine Yellow; Glucose Urine UA Negative (Negative); Leukocyte Esterase Urine Negative (Negative); Nitrite Urine Negative (Negative); PH 6.5 (5.0-9.0); Specific Gravity - Urine 1.015 (1.005-1.025); Urine Blood Negative (Negative); Urine Ketones Negative (Negative); Urine Protein Negative (Neg-Trace)
[2024-03-27 22:48] LABS: Alanine Aminotransferase 11 U/L (0-31); Albumin Level 4.3 g/dL (3.5-5.0); Alkaline Phosphatase 63 U/L (39-117); Anion Gap 12 (12-20); Aspartate Amino Transferase 13 U/L (5-31); Bilirubin Total 0.3 mg/dL (0.0-1.0); Blood Urea Nitrogen 14 mg/dL (9-16); Calcium 9.4 mg/dL (8.4-10.2); Carbon Dioxide 23 mmol/L (22-29); Chloride 107 mmol/L (96-108); Creatinine Clr Calc Pharmacy 90.8; Estimated Glomerular Filt Rate > 60; Glucose Random 101 mg/dL (60-115); Potassium 3.6 mmol/L (3.3-5.1); Sodium 138 mmol/L (135-145); Total Protein 7.6 g/dL (6.5-8.0)
--- NOTE | 2024-03-27 23:15 | ED_ITS ---
HPI - Abdominal Pain General Chief Complaint: Abdominal Pain Stated Complaint: Lower abd pain Time Seen by Provider: 03/27/24 23:13 Source: patient Mode of arrival: ambulatory Limitations: no limitations History of Present Illness ED Provider: ajay SWAN narrative: Patient's history of ovarian cyst at young age comes here for lower abdominal pain for last 3 days gradual onset no relation with food no nausea no vomiting no no fever no chills patient was here 09/28 ultrasound negative for similar pain Related Data Previous Rx's ?Medication ?Instructions ?Recorded ibuprofen 600 mg tablet 600 mg PO Q6H PRN fever or pain 03/28/24 #30 tabs Allergies Allergy/AdvReac Type Severity Reaction Status Date / Time oxycodone Allergy Hives Verified 03/27/24 22:12 shellfish derived Allergy Hives Verified 03/27/24 22:12 Review of Systems Review of Systems Yes all other systems are reviewed and are negative PMFSH Past Medical History Medical History Ovarian cyst Surgical History H/O tubal ligation Social History Social History Smoked in Last 30 Days: No Use of substances other than those prescribed or required for medical reasons: No Advance Directives: No Advance Directives Information Provided: No Do you have a plan to hurt others: No Plan Physical Exam ED Vital Signs: Vital Signs - 24 hr 03/27/24 22:10 03/27/24 23:30 Temperature 98.4 F 97.9 F Pulse Rate 73 71 Respiratory Rate 16 16 Blood Pressure 119/79 106/55 L Pulse Oximetry 99 100 Oxygen Delivery Method Room Air Room Air BMI result Body Mass Index 34.4 Appearance: Alert. Oriented X3. No acute distress. Eyes: No pallor or icterus ENT: Pharynx normal. Oral Mucosa moist Neck: Normal inspection. Neck supple. CVS: Normal heart rate and rhythm. Pulses normal. Respiratory: No respiratory distress. Equal air entry bilateral, no wheezing/rales/rhonchi Abdomen: Soft and tenderness suprapubic area no rebound tenderness or guarding. Bowel sounds are present, no mass palpable, no CVA tenderness Skin: Skin warm and dry. Normal skin color. Normal skin turgor. Extremities: No lower extremity edema. No calf tenderness Neuro: Oriented X 3. Medical Decision Making Lab Data MDM Lab Attestation statement: I reviewed the patient's lab results. 03/27/24 22:24 03/27/24 22:24 Labs: Lab Results 03/27/24 Range/Units 22:24 WBC 7.2 (4.8-10.8) X10*3/uL RBC 4.65 (4.20-5.50) X10*6/uL Hgb 12.6 (12.0-16.0) g/dl Hct 37.2 (37.0-47.0) % MCV 80.0 (80.0-98.0) fL MCH 27.1 (27.0-33.0) pg MCHC 33.9 (31.0-35.0) g/dl RDW 14.6 (11.0-16.0) % Plt Count 203 (160-400) X10*3/uL MPV 10.9 (9.4-12.3) fL Immature Gran % (Auto) 0.1 (0.0-0.4) % Neut % (Auto) 51.8 (45-73) % Lymph % (Auto) 39.2 (20-40) % Z[place]ala % (Auto) 6.0 (2-11) % Eos % (Auto) 2.5 (0-4) % Baso % (Auto) 0.4 (0-2) % Lymph # (Auto) 2.8 (1.2-4.9) X10*3/uL [place]ala # (Auto) 0.4 (0.1-1.2) X10*3/uL Eos # (Auto) 0.2 (0.0-0.4) X10*3/uL Baso # (Auto) 0.0 (0.0-0.2) X10*3/uL Abs Immat Gran (auto) 0.01 (0.00-0.03) X10*3/uL Absolute Neuts (auto) 3.7 (2.0-8.3) x10*3/uL Absolute Nucleated RBC 0.000 (0.0-0.012) X10*3/uL Nucleated RBC % (auto) 0.0 (0.0-0.2) /100WBC Sodium 138 (135-145) mmol/L Potassium 3.6 (3.3-5.1) mmol/L Chloride 107 (96-108) mmol/L Carbon Dioxide 23 (22-29) mmol/L Anion Gap 12 (12-20) BUN 14 (9-16) mg/dL Creatinine 0.71 (0.5-1.4) mg/dL Estim Creat Clear Calc 90.8 Estimated GFR > 60 Random Glucose 101 (60-115) mg/dL Calcium 9.4 (8.4-10.2) mg/dL Total Bilirubin 0.3 (0.0-1.0) mg/dL AST 13 (5-31) U/L ALT 11 (0-31) U/L Alkaline Phosphatase 63 (39-117) U/L Total Protein 7.6 (6.5-8.0) g/dL Albumin 4.3 (3.5-5.0) g/dL Urine Color Yellow Urine Appearance Clear Urine pH 6.5 (5.0-9.0) Ur Specific [place] 1.015 (1.005-1.025) Urine Protein Negative (Neg-Trace) mg/dL Urine Glucose (UA) Negative (Negative) mg/dL Urine Ketones Negative (Negative) mg/dL Urine Blood Negative (Negative) Urine Nitrite Negative (Negative) Ur Leukocyte Esterase Negative (Negative) Independent Interpretation I performed an independent interpretation of an: Ultrasound Radiology Impression Discussion of test interpretation with radiology: I have reviewed the radiologist's reading. Discharge Plan Discharge Clinical Impression: Pelvic pain Patient Disposition: Home, Self-Care Instructions: Pelvic Pain in Women (ED) Additional Instructions: Cause of your pelvic pain is not clear likely pre menstrual follow up with tobacco dipper for further evaluation Your blood workup and pelvic ultrasound are negative Prescriptions: New ibuprofen 600 mg tablet 600 mg PO Q6H PRN (Reason: fever or pain) Qty: 30 0RF Print Language: Latvian
[2024-03-27 23:30] VITALS: BP 106/55; PULSE 71; RESP 16; TEMP 36.6; O2SAT 100
[2024-03-28 02:18] VITALS: BP 106/55; PULSE 71; RESP 16; TEMP 36.6; O2SAT 100
== END 2024-03-28 02:23 | disposition home or self-care (01) ==
PROVIDERS: Emergency Provider Internal Medicine; PCP Internal Medicine
DX: R10.2 Pelvic and perineal pain (principal)
CPT/HCPCS: 36415; 76856; 80053; 81003; 85025; 99284

== ENCOUNTER 2024-04-14 12:28 | Emergency (ER) | payer OTHER, SELFPAY ==
--- NOTE | ~2024-04-14 | CT_ITS ---
EXAMINATION: CERVICAL SPINE CT WITHOUT CONTRAST CLINICAL INFORMATION: Pain and paresthesias in the left arm. COMPARISON: None. TECHNIQUE: Multidetector volumetric imaging was obtained through the cervical spine without intravenous contrast. Multiplanar reconstructed images in coronal and sagittal orientations were submitted. This CT examination was performed using dose optimization techniques as appropriate, variously including the following: *Automated exposure control *Adjustment of mA and/or kV according to patient size (this includes techniques or standardized protocols for targeted exams where dose is matched to indication/reason for exam; i.e. extremities or head) *Use of iterative reconstruction technique DOSE: 484 mGy-cm FINDINGS: Vertebral body heights are normal. No fractures of the vertebral bodies or posterior elements. Reversal of the normal cervical lordosis is likely positional or degenerative. No vertebral body or posterior element subluxation. Degenerative osteophytes and sclerosis are present at the atlantodental articulation, though normal alignment is maintained. Craniocervical junction is normal. Moderate multilevel degenerative disc disease is most notable at C4-C5, C5-C6, and C6-C7 with endplate and uncovertebral osteophytes. Facet joints are normal. Posterior disc osteophyte complexes at multiple levels including C5-C6, producing at least mild to moderate central canal narrowing. Neural foraminal encroachment at multiple levels, most notably on the left at C5-C6 and, to a lesser extent, C6-C7. Additional mild neural foraminal encroachment on the right at C5-C6 and C6-C7. No significant paravertebral soft tissue swelling. Cervical soft tissues are unremarkable. Imaged portions of the lung apices are clear. CT/CT cervical spine wo IV con IMPRESSION: 1. No acute fracture or malalignment in the cervical spine. 2. Moderate multilevel degenerative spondylosis in the cervical spine, most notably at C5-C6. At least mild to moderate central canal narrowing at C5-C6. Multilevel neural foraminal encroachment, most notably on the left at C5-C6 (C6 nerve root) and, to a lesser extent, C6-C7 (C7 nerve root).
[2024-04-14 12:30] VITALS: BP 134/85; PULSE 96; RESP 16; TEMP 36.5; O2SAT 97; BMI 34.2
--- NOTE | 2024-04-14 12:30 | ED_ITS ---
HPI - General Adult General Chief complaint: Neck Pain/Injury Stated complaint: lt shoulder/neck pain Time Seen by Provider: 04/14/24 12:59 Source: patient Mode of arrival: ambulatory Limitations: no limitations History of Present Illness HPI narrative: Patient is a 33-year-old female presents emergency department for evaluation. Reports last night that she had her left arm raised above her head when she went to bring it down she believes she ?brought it down too quickly to hard and she had sudden onset of pain shooting down the lateral aspect of her left neck across the shoulder and all the way down her arm into her fingers. She has been experiencing a tingling sensation to the left arm since last night. She reports significant pain with movement of the arm. She has some mild pain when rotating her head towards the left but has more severe pain when rotating her right. Related Data Previous Rx's ?Medication ?Instructions ?Recorded ibuprofen 600 mg tablet 600 mg PO Q6H PRN fever or pain 03/28/24 #30 tabs cyclobenzaprine 10 mg tablet 10 mg PO TID PRN muscle spasm #14 04/14/24 tabs prednisone 20 mg tablet 40 mg (2 x 20 mg) PO DAILY 5 days 04/14/24 #10 tabs Allergies Allergy/AdvReac Type Severity Reaction Status Date / Time oxycodone Allergy Hives Verified 04/14/24 12:32 shellfish derived Allergy Hives Verified 04/14/24 12:32 Review of Systems Review of Systems: Yes all other systems are reviewed and are negative PMFSH Past Medical History Attestation statement: The following information was validated with the patient. Source: old records reviewed Medical History Ovarian cyst Surgical History H/O tubal ligation Social History Social History Advance Directives: No Advance Directives Information Provided: No Physical Exam ED Vital Signs: Vital Signs - 24 hr 04/14/24 12:30 Temperature 97.7 F Pulse Rate 96 Respiratory Rate 16 Blood Pressure 134/85 Pulse Oximetry 97 Oxygen Delivery Method Room Air BMI result Body Mass Index 34.2 Appearance: Alert.?Oriented to person, place and time. No acute distress.?Radha l affect. Eyes: Pupils equal, round and reactive to light.? ENT: Pharynx normal.?? Neck: Guarded rigid movement of the head/neck. exquisite tenderness along palpation of the trapezius and paraspinal muscle on the left but no midline cervical spine tenderness, step-offs, deformities. She is unable to bend her neck laterally towards the right due to pain and has not increase in pain when rotating her head towards the right less pain when rotating towards the left, decreased flexion forward and extension backwards. CVS: Heart sounds normal. Normal heart rate and rhythm.? Pulses normal.?? Respiratory: No respiratory distress.? Lung sounds clear to auscultation bilaterally?? Skin: Skin warm and dry.? Normal skin color.? Extremities: No lower extremity edema.? Neuro: Moves all extremities spontaneously. Sensation intact bilaterally. CN II- XII intact. No focal neuro deficits. Ambulates with normal steady gait. Course Course Course Narrative: This is a rapid medical exam performed by Andrés Riggins NP: Additional HPI, ROS, PE not included below will be deferred to primary provider. Patient is a 33-year-old left hand dominant female presenting to the ED with complaint of pain and tingling to left arm since last night. Symptoms began after she lifted her arm and put it down too hard. 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 States she did not sleep on her left arm. Plan: CT c-spine, EKG Reevaluation(s) Reevaluation #1: Patient received cyclobenzaprine and Toradol with good improvement in symptoms. CT of the cervical spine without acute fracture subluxation, multilevel degenerative changes most notable at C5-C6 with moderate central canal narrowing and foraminal encroachment. Symptoms most consistent with a cervical strain and cervical radiculopathy with DJD. Patient is stable for discharge home, advised course of acetaminophen, prednisone, cyclobenzaprine for pain that is unrelieved. Outpatient follow-up with primary care doctor, rest, gentle stretching and exercises after the next few days, and possible physical therapy outpatient. Worrisome signs and symptoms that would warrant re-evaluation emergency department were discussed. Time: 15:49 Medications Administered Discontinued Medications Generic Name Dose Route Start Last Admin Trade Name Freq PRN Reason Stop Dose Admin Cyclobenzaprine HCl 10 mg 04/14/24 13:12 04/14/24 13:30 Cyclobenzaprine Hcl 10 Mg Tablet PO 04/14/24 13:13 10 mg ONCE ONE Administration Ketorolac Tromethamine 30 mg 04/14/24 13:12 04/14/24 13:31 Ketorolac Tromethamine 30 Mg/Ml Vial IM 04/14/24 13:13 30 mg ONCE ONE Administration Medical Decision Making Medical Decision Making MDM Narrative: On evaluation she appears notably stiff, holding her shoulder slightly upwards,, has limited active range of motion of the head/neck with rigid/guarded movement. She is able to sit in an upright posture. She has exquisite tenderness along palpation of the trapezius and paraspinal muscle on the left but no midline cervical spine tenderness, step-offs, deformities. She is unable to bend her neck laterally towards the right due to pain and has not increase in pain when rotating her head towards the right less pain when rotating towards the left, decreased flexion forward and extension backwards. No focal neurological deficits. She has no constitutional symptoms to suspect infection, no immunocompromise, no history of malignancy. Left upper extremities neurovascularly intact distally. Suspect less likely spinal cord compression. No red flag symptoms. EKG does not reveal acute ischemic findings or arrhythmia. Patient received ketorolac and cyclobenzaprine pain management. Differential Diagnosis Differential Diagnoses: The differential diagnosis associated with the presentat ion includes Admission/Observation Consideration of admission/observation: Escalation of care including admission/observation considered Independent Interpretation I performed an independent interpretation of an: EKG Interpretation: Rate: 98 Rhythm:? Sinus rhythm Normal P waves.? Normal ERIK.?? Normal QRS complex.?? ST T wave :??No ST elevation, no ST depression, no T-wave inversion qTC: 418 prior studies:? September of 2023 The study has been interpreted contemporaneously by me. Radiology Impression Discussion of test interpretation with radiology: I have reviewed the radiologist's reading. Radiologist Impression: CT/CT cervical spine wo IV con IMPRESSION: 1. No acute fracture or malalignment in the cervical spine. 2. Moderate multilevel degenerative spondylosis in the cervical spine, most notably at C5-C6. At least mild to moderate central canal narrowing at C5-C6. Multilevel neural foraminal encroachment, most notably on the left at C5-C6 (C6 nerve root) and, to a lesser extent, C6-C7 (C7 nerve root). External Record Review External record reviewed: Outpatient record Prescription Management I considered prescription management with: Pain Medication Discharge Plan Discharge Clinical Impression: Cervical radiculopathy Patient Disposition: Home, Self-Care Instructions: Cervical Radiculopathy (ED) Additional Instructions: CT scan today does not show any evidence of a broken bone. You do have some degenerative/arthritic changes, likely resulting in the pain that you are experiencing, a nerve type of pain. You can take Tylenol 500 mg, 2 tablets (1,000mg) every 4-6 hours as needed for pain, but not to exceed 3 doses daily (3,000mg).? A prescription for prednisone has been sent to your pharmacy, please take this daily in the morning with food to prevent stomach upset. For pain unrelieved by either of the above I have sent a prescription for muscle relaxant to your pharmacy, this medication may make you drowsy, should not drive, drink alcohol, or work while taking this medication. Please follow-up with your primary care doctor, they may refer you to a course of physical therapy after a few days of rest, engage in gentle stretching and exercise. Seek evaluation if you develop a fever, severe worsening pain, new or worsening symptoms or concerns. Prescriptions: New prednisone 20 mg tablet 40 mg PO DAILY 5 Days Qty: 10 0RF cyclobenzaprine 10 mg tablet 10 mg PO TID PRN (Reason: muscle spasm) Qty: 14 0RF No Action ibuprofen 600 mg tablet 600 mg PO Q6H PRN (Reason: fever or pain) Qty: 30 0RF Referrals: Tammy Simmons MD [Primary Care Provider] - Print Language: Tunisian
--- NOTE | 2024-04-14 12:32 | ECG_ITS ---
Test Reason : arm numbness Blood Pressure : / mmHG Vent. Rate : 098 BPM Atrial Rate : 098 BPM P-R Int : 150 ms QRS Dur : 080 ms QT Int : 328 ms P-R-T Axes : 040 012 020 degrees QTc Int : 418 ms Normal sinus rhythm Normal ECG When compared with ECG of 10-SEP-2023 23:56, T wave amplitude has decreased in Lateral leads Referred By: Lizeth Riggins Electronically Signed By:ZAK MUNOZ MD
[2024-04-14] MEDS: Cyclobenzaprine HCl 10 MG TABLET PO (13:30)
[2024-04-14] MEDS: Ketorolac Tromethamine 30 MG/ML VIAL IM (13:31)
[2024-04-14 15:58] VITALS: BP 133/69; PULSE 79; RESP 16; TEMP 36.7; O2SAT 97
[2024-04-14 16:08] VITALS: BP 133/69; PULSE 79; RESP 16; TEMP 36.7; O2SAT 97
== END 2024-04-14 16:12 | disposition home or self-care (01) ==
PROVIDERS: Emergency Provider Emergency Medicine; PCP Internal Medicine
DX: M54.12 Radiculopathy, cervical region (principal); M54.2 Cervicalgia; R20.0 Anesthesia of skin
CPT/HCPCS: 72125; 93005; 96372; 99284; J1885

== ENCOUNTER → 2024-04-14 12:32 | Outpatient (BNV) | payer OTHER, SELFPAY | PROVIDERS: Emergency Provider Emergency Medicine; PCP Internal Medicine; Visit Provider Internal Medicine Cardiovascular Disease | DX: R20.2 Paresthesia of skin (principal) | CPT/HCPCS: 93010 ==

== ENCOUNTER 2024-04-21 18:17 | Emergency (ER) | payer OTHER, SELFPAY ==
--- NOTE | ~2024-04-21 | XR_ITS ---
EXAMINATION: XR HUMERUS, LEFT XR FOREARM, LEFT CLINICAL INFORMATION: Injury. COMPARISON: None TECHNIQUE: AP and lateral views of the left humerus and AP and lateral views of the forearm. FINDINGS: Left humerus: Mild acromioclavicular osteoarthritis. Glenohumeral joint is unremarkable. No fracture or malalignment. Bone mineralization is normal. There is a 5 mm calcification at the greater tuberosity, most consistent with calcific tendinitis. Left forearm: No fracture or malalignment. Elbow joint is unremarkable. Bone mineralization is normal. Soft tissues are unremarkable. Imaged portion of the wrist is normal. XR/XR forearm LT 2V IMPRESSION: 1. No acute fracture or malalignment in the left humerus and forearm. 2. Mild acromioclavicular osteoarthritis.
--- NOTE | ~2024-04-21 | XR_ITS ---
EXAMINATION: XR HUMERUS, LEFT XR FOREARM, LEFT CLINICAL INFORMATION: Injury. COMPARISON: None TECHNIQUE: AP and lateral views of the left humerus and AP and lateral views of the forearm. FINDINGS: Left humerus: Mild acromioclavicular osteoarthritis. Glenohumeral joint is unremarkable. No fracture or malalignment. Bone mineralization is normal. There is a 5 mm calcification at the greater tuberosity, most consistent with calcific tendinitis. Left forearm: No fracture or malalignment. Elbow joint is unremarkable. Bone mineralization is normal. Soft tissues are unremarkable. Imaged portion of the wrist is normal. XR/XR humerus LT IMPRESSION: 1. No acute fracture or malalignment in the left humerus and forearm. 2. Mild acromioclavicular osteoarthritis.
[2024-04-21 18:36] VITALS: BP 130/77; PULSE 97; RESP 18; TEMP 37; O2SAT 98; BMI 33.8
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
[2024-04-21] MEDS: Ketorolac Tromethamine 30 MG/ML VIAL IM (22:09)
[2024-04-21 22:13] VITALS: BP 130/81; PULSE 76; RESP 16; TEMP 36.7; O2SAT 100
[2024-04-21 22:38] VITALS: BP 130/81; PULSE 76; RESP 16; TEMP 36.7; O2SAT 100
== END 2024-04-21 22:38 | disposition home or self-care (01) ==
PROVIDERS: Emergency Provider Emergency Medicine; PCP Internal Medicine
DX: S56.912A Strain of unspecified muscles, fascia and tendons at forearm level, left arm, initial encounter (principal); S46.912A Strain of unspecified muscle, fascia and tendon at shoulder and upper arm level, left arm, initial encounter; Y04.8XXA Assault by other bodily force, initial encounter; Y93.F9 Activity, other caregiving; Y92.129 Unspecified place in nursing home as the place of occurrence of the external cause; Y99.0 Civilian activity done for income or pay
CPT/HCPCS: 73060; 73090; 96372; 99284; J1885

== ENCOUNTER 2025-03-23 02:41 | Emergency (ER) | payer OTHER, SELFPAY ==
--- NOTE | 2025-03-23 | ECG_ITS ---
Test Reason : HEADACHE Blood Pressure : */* mmHG Vent. Rate : 74 BPM Atrial Rate : 74 BPM P-R Int : 156 ms QRS Dur : 76 ms QT Int : 370 ms P-R-T Axes : 35 13 30 degrees QTcB Int : 410 ms Normal sinus rhythm Normal ECG When compared with ECG of 14-Apr-2024 12:34, T wave amplitude has increased in Lateral leads Referred By: Generic ED Physician Electronically Signed By: ERIKA BURLESON
[2025-03-23 02:45] VITALS: BP 125/63; BP 145/75; PULSE 85; PULSE 96; RESP 16; TEMP 36.6; O2SAT 99; BMI 37.4
--- NOTE | 2025-03-23 02:45 | PC.NURSE ---
pt biba from home, a&ox4, respirations even and unlabored. pt reports onset of headache radiating down face into jaw and dizziness. pt reports taking tylenol with initially no affect. on arrival pt reports headache subsided but she was still dizzy as if something was pushing her down. pt reports she had a tooth infection x1 week ago and finished antibiotics. vss.
[2025-03-23 03:04] LABS: MANUAL DIFF FLAG NO
[2025-03-23 03:06] LABS: Hematocrit 35.2 % (37.0-47.0); Hemoglobin 12.1 g/dl (12.0-16.0); Imm Gran Abs Auto 0.01 X10*3/uL (0.00-0.03); Imm Gran Pct Auto 0.2 % (0.0-0.4); Lymphocytes Absolute Auto 1.5 X10*3/uL (1.2-4.9); Mean Corpuscular HGB Conc 34.4 g/dl (31.0-35.0); Mean Corpuscular Hemoglobin 26.6 pg (27.0-33.0); Mean Corpuscular Volume 77.4 fL (80.0-98.0); NRBC Abs Auto 0.000 X10*3/uL (0.0-0.012); NRBC Pct Auto 0.0 /100WBC (0.0-0.2); Platelet Count 209 X10*3/uL (160-400); Red Blood Count 4.55 X10*6/uL (4.20-5.50); White Blood Count 6.4 X10*3/uL (4.8-10.8)
[2025-03-23 03:19] LABS: Alanine Aminotransferase 34 U/L (0-31); Albumin Level 4.4 g/dL (3.5-5.0); Alkaline Phosphatase 65 U/L (39-117); Anion Gap 13 (12-20); Aspartate Amino Transferase 30 U/L (5-31); Blood Urea Nitrogen 11 mg/dL (9-16); Calcium 8.6 mg/dL (8.4-10.2); Carbon Dioxide 20 mmol/L (22-29); Chloride 109 mmol/L (96-108); Creatinine Clr Calc Pharmacy 104.6; Estimated Glomerular Filt Rate > 60; Potassium 3.6 mmol/L (3.3-5.1); Sodium 138 mmol/L (135-145); Total Protein 7.8 g/dL (6.5-8.0)
[2025-03-23 03:25] LABS: Troponin-I High Sensitivity < 2.7 ng/L (<3.5-17.0)
--- NOTE | 2025-03-23 05:22 | ED.DIZZY ---
HPI - Dizziness General Chief Complaint: Headache Stated Complaint: DIZZINESS/HEADACHE Time Seen by Provider: 03/23/25 05:22 Source: patient Mode of arrival: ambulatory Limitations: no limitations History of Present Illness ED Provider: HPI Narrative: Patient apparently had lower left molar extraction 4 days ago woke up from the in the night with increased pain in the in the jaw radiating to left side of the head felt anxious called EMS had some mild chest pain at this time patient is feels much better Related Data Previous Rx's ?Medication ?Instructions ?Recorded ibuprofen 600 mg tablet 600 mg PO Q6H PRN fever or pain 03/28/24 #30 tabs cyclobenzaprine 10 mg tablet 10 mg PO TID PRN muscle spasm #14 04/14/24 tabs prednisone 20 mg tablet 40 mg (2 x 20 mg) PO DAILY 5 days 04/14/24 #10 tabs acetaminophen 500 mg capsule 1,000 mg (2 x 500 mg) PO Q8H PRN 04/21/24 pain #20 caps acetaminophen 500 mg capsule 1,000 mg (2 x 500 mg) PO Q8H PRN 04/21/24 pain #20 caps ibuprofen 600 mg tablet 600 mg PO Q6H PRN pain #14 tabs 04/21/24 ibuprofen 600 mg tablet 600 mg PO Q6H PRN pain #14 tabs 04/21/24 morphine 15 mg immediate release 15 mg PO Q6H PRN pain #12 tabs 04/21/24 tablet morphine 15 mg immediate release 15 mg PO Q6H PRN pain #12 tabs 04/21/24 tablet amoxicillin 875 mg-potassium 1 tab PO BID #20 tabs 03/23/25 clavulanate 125 mg tablet ibuprofen 600 mg tablet 600 mg PO Q6H PRN fever or pain 03/23/25 #30 tabs tramadol 50 mg tablet 50 mg PO Q6H PRN pain #20 tabs 03/23/25 Allergies Allergy/AdvReac Type Severity Reaction Status Date / Time oxycodone Allergy Hives Verified 03/23/25 02:47 shellfish derived Allergy Hives Verified 03/23/25 02:47 Review of Systems Review of Systems: Yes all other systems are reviewed and are negative PMFSH Past Medical History Medical History Ovarian cyst Surgical History H/O tubal ligation Social History Social History Alcohol intake: never Smoked in Last 30 Days: No Use of substances other than those prescribed or required for medical reasons: No Advance Directives: No Advance Directives Information Provided: No Do you have a plan to hurt others: No Plan Patient : No Physical Exam Exam: Exam: Appearance: Alert. Oriented X3. No acute distress. Eyes: PERRLA, No Nystagmus ENT: Pharynx normal. Oral Mucosa moist Neck: Normal inspection. Neck supple. CVS: Normal heart rate and rhythm. Pulses normal. Respiratory: No respiratory distress. Equal air entry bilateral, no wheezing/rales/rhonchi Abdomen: Soft and nontender. Bowel sounds are present, no mass palpable, no CVA tenderness Skin: Skin warm and dry. Normal skin color. Normal skin turgor. Extremities: No lower extremity edema. No calf tenderness Neuro: Oriented X 3. No motor deficit. No sensory deficit.No cerebellar signs , cranial nerves II-XII intact Vital Signs: Vital Signs: Last Vital Signs Temp 98.3 F 03/23/25 06:24 Pulse 76 03/23/25 06:24 Resp 16 03/23/25 06:24 BP 115/60 03/23/25 06:24 Pulse Ox 99 03/23/25 06:24 O2 Del Method Room Air 03/23/25 06:24 BMI result Body Mass Index 37.4 HEENT: Teeth image:  1. Local tenderness at the extraction site no abscess palpable Medical Decision Making Medical Decision Making MDM Narrative: Patient with anxiety with toothache will prescribe Augmentin and give her pain medication patient is feeling much stable now will discharge the patient home Lab Data 03/23/25 02:55 03/23/25 02:55 Labs: Lab Results 03/23/25 Range/Units 02:55 WBC 6.4 (4.8-10.8) X10*3/uL RBC 4.55 (4.20-5.50) X10*6/uL Hgb 12.1 (12.0-16.0) g/dl Hct 35.2 L (37.0-47.0) % MCV 77.4 L (80.0-98.0) fL MCH 26.6 L (27.0-33.0) pg MCHC 34.4 (31.0-35.0) g/dl RDW 14.3 (11.0-16.0) % Plt Count 209 (160-400) X10*3/uL MPV 10.4 (9.4-12.3) fL Immature Gran % (Auto) 0.2 (0.0-0.4) % Neut % (Auto) 66.8 (45-73) % Lymph % (Auto) 24.1 (20-40) % [place] % (Auto) 6.7 (2-11) % Eos % (Auto) 1.7 (0-4) % Baso % (Auto) 0.5 (0-2) % Lymph # (Auto) 1.5 (1.2-4.9) X10*3/uL [place] # (Auto) 0.4 (0.1-1.2) X10*3/uL Eos # (Auto) 0.1 (0.0-0.4) X10*3/uL Baso # (Auto) 0.0 (0.0-0.2) X10*3/uL Abs Immat Gran (auto) 0.01 (0.00-0.03) X10*3/uL Absolute Neuts (auto) 4.3 (2.0-8.3) x10*3/uL Absolute Nucleated RBC 0.000 (0.0-0.012) X10*3/uL Nucleated RBC % (auto) 0.0 (0.0-0.2) /100WBC Sodium 138 (135-145) mmol/L Potassium 3.6 (3.3-5.1) mmol/L Chloride 109 H (96-108) mmol/L Carbon Dioxide 20 L (22-29) mmol/L Anion Gap 13 (12-20) BUN 11 (9-16) mg/dL Creatinine 0.64 (0.5-1.4) mg/dL Estim Creat Clear Calc 104.6 Estimated GFR > 60 Random Glucose 113 (60-115) mg/dL Calcium 8.6 D (8.4-10.2) mg/dL Total Bilirubin 0.4 (0.0-1.0) mg/dL AST 30 (5-31) U/L ALT 34 H (0-31) U/L Alkaline Phosphatase 65 (39-117) U/L Troponin I High Sens < 2.7 (<3.5-17.0) ng/L Total Protein 7.8 (6.5-8.0) g/dL Albumin 4.4 (3.5-5.0) g/dL Discharge Plan Discharge Clinical Impression: Pain due to dental caries Patient Disposition: Home, Self-Care Instructions: Toothache (ED) Additional Instructions: Take antibiotics and pain medication as prescribed Follow up with your dentist Prescriptions: New tramadol 50 mg tablet 50 mg PO Q6H PRN (Reason: pain) Qty: 20 0RF ibuprofen 600 mg tablet 600 mg PO Q6H PRN (Reason: fever or pain) Qty: 30 0RF amoxicillin-pot clavulanate 875-125 mg tablet 1 tab PO BID Qty: 20 0RF No Action ibuprofen 600 mg tablet 600 mg PO Q6H PRN (Reason: fever or pain) Qty: 30 0RF prednisone 20 mg tablet 40 mg PO DAILY 5 Days Qty: 10 0RF cyclobenzaprine 10 mg tablet 10 mg PO TID PRN (Reason: muscle spasm) Qty: 14 0RF ibuprofen 600 mg tablet 600 mg PO Q6H PRN (Reason: pain) Qty: 14 0RF acetaminophen 500 mg capsule 1,000 mg PO Q8H PRN (Reason: pain) Qty: 20 0RF morphine 15 mg tablet 15 mg PO Q6H PRN (Reason: pain) Qty: 12 0RF Rx Instructions: Partial Fill upon patient request. acetaminophen 500 mg capsule 1,000 mg PO Q8H PRN (Reason: pain) Qty: 20 0RF ibuprofen 600 mg tablet 600 mg PO Q6H PRN (Reason: pain) Qty: 14 0RF morphine 15 mg tablet 15 mg PO Q6H PRN (Reason: pain) Qty: 12 0RF Rx Instructions: Partial Fill upon patient request. Print Language: Armenian
[2025-03-23 05:23] VITALS: BP 119/62; PULSE 82; RESP 16; TEMP 36.7; O2SAT 99
[2025-03-23 06:24] VITALS: BP 115/60; PULSE 76; RESP 16; TEMP 36.8; O2SAT 99
--- NOTE | 2025-03-23 06:47 | PC.NURSE ---
Pt refused Tramadol, states she is Ubering home and wants to be alert.
[2025-03-23 06:48] VITALS: BP 0/0; PULSE 0; RESP 20; TEMP -17.7; TEMP 0; O2SAT 0
== END 2025-03-23 06:49 | disposition home or self-care (01) ==
PROVIDERS: Emergency Provider Internal Medicine; PCP Internal Medicine
DX: K02.9 Dental caries, unspecified (principal); K08.89 Other specified disorders of teeth and supporting structures; R68.84 Jaw pain; Z79.899 Other long term (current) drug therapy
CPT/HCPCS: 36415; 80053; 84484; 85025; 93005; 99283; 99285

== ENCOUNTER → 2025-03-23 02:47 | Outpatient (BNV) | payer OTHER, SELFPAY | PROVIDERS: Emergency Provider Internal Medicine; PCP Internal Medicine; Visit Provider Internal Medicine | DX: R51.9 Headache, unspecified (principal) | CPT/HCPCS: 93010 ==

== ENCOUNTER 2025-03-23 10:10 | Emergency (ER) | payer OTHER, SELFPAY ==
--- NOTE | ~2025-03-23 | XR_ITS ---
CLINICAL HISTORY: CP Chest radiograph PA and lateral views Comparison: CR/SR - XR CHEST 2 VIEWS - 12/25/22 01:43 EDT Findings: Cardiomediastinal silhouette normal. No consolidations.No pleural effusion. No pneumothorax. No free air under the diaphragms. No acute fracture. Soft tissue is unremarkable. Impression: No acute cardiopulmonary finding. This document has been electronically signed by: Yanet Og MD on 03/23/2025 11:47:39
--- NOTE | 2025-03-23 10:23 | ECG_ITS ---
Test Reason : cp Blood Pressure : */* mmHG Vent. Rate : 74 BPM Atrial Rate : 74 BPM P-R Int : 158 ms QRS Dur : 74 ms QT Int : 384 ms P-R-T Axes : 39 10 21 degrees QTcB Int : 426 ms Normal sinus rhythm Normal ECG When compared with ECG of 23-Mar-2025 02:47, No significant change was found Referred By: Generic ED Physician Electronically Signed By: ERIKA BURLESON
[2025-03-23 10:24] VITALS: BP 118/94; BP 121/66; PULSE 86; PULSE 96; RESP 18; TEMP 36.9; O2SAT 100; O2SAT 99; BMI 37.2
--- NOTE | 2025-03-23 10:29 | ED_ITS ---
HPI - General Adult General Chief complaint: Headache Stated complaint: DIZZY Time Seen by Provider: 03/23/25 10:28 Source: patient, EMS and RN notes reviewed Mode of arrival: EMS Limitations: no limitations History of Present Illness ED Provider: Kaylene Corral PA-C HPI narrative: This is a 34-year-old female, with no known medical problems, who presents emergency department with a sudden episode of chest tightness. Patient was seen earlier this morning due to an episode of chest discomfort and left-sided facial pain. Patient was discharged home after receiving Augmentin and Tylenol. She states that this morning while she was making her children breakfast she had a sudden episode of chest tightness, and flushing sensation throughout her body. She states that this lasted for approximately 3 minutes. She states that she had a similar episode which prompted her to come to the emergency room last night. She states that she was given aspirin and route. No known cardiac history. Patient reports that a have a family medical history of some cardiac issues however later on in life. No recent travel, surgery, or hospitalizations. She is not on control. No lower extremity swelling. No other complaints or concerns at this time. MD complaint: Chest tightness Onset (ago): day(s) Quality: aching Pain Consistency: constant Relieving factors: none Exacerbating factors: none Associated symptoms: denies other symptoms Treatments prior to arrival: none Related Data Previous Rx's ?Medication ?Instructions ?Recorded ibuprofen 600 mg tablet 600 mg PO Q6H PRN fever or p ain 03/28/24 #30 tabs cyclobenzaprine 10 mg tablet 10 mg PO TID PRN muscle s pasm #14 04/14/24 tabs prednisone 20 mg tablet 40 mg (2 x 20 mg) PO DAILY 5 days 04/14/24 #10 tabs acetaminophen 500 mg capsule 1,000 mg (2 x 500 mg) PO Q8H PRN 04/21/24 pain #20 caps acetaminophen 500 mg capsule 1,000 mg (2 x 500 mg) PO Q8H PRN 04/21/24 pain #20 caps ibuprofen 600 mg tablet 600 mg PO Q6H PRN pain #14 t abs 04/21/24 ibuprofen 600 mg tablet 600 mg PO Q6H PRN pain #14 t abs 04/21/24 morphine 15 mg immediate release 15 mg PO Q6H PRN pain #12 tabs 04/21/24 tablet morphine 15 mg immediate release 15 mg PO Q6H PRN pain #12 tabs 04/21/24 tablet amoxicillin 875 mg-potassium 1 tab PO BID #20 tabs clavulanate 125 mg tablet ibuprofen 600 mg tablet 600 mg PO Q6H PRN fever or p ain 03/23/25 #30 tabs tramadol 50 mg tablet 50 mg PO Q6H PRN pain #20 ta bs 03/23/25 Allergies Allergy/AdvReac Type Severity Reaction Status Date / Time oxycodone Allergy Hives Verified 03/23/25 10:25 shellfish derived Allergy Hives Verified 03/23/25 10:25 Review of Systems 2 Review of Systems: Yes all other systems are reviewed and are negative Constitutional: Constitutional: Reports as per [facility] Past Medical History Attestation statement: The following information was validated with the patient. Medical History Ovarian cyst Surgical History H/O tubal ligation Social History Social History Alcohol intake: never Physical Exam ED Vital Signs: Vital Signs - 24 hr 03/23/25 10:24 03/23/25 14:22 03/23/25 14:57 Temperature 98.5 F 98.2 F Pulse Rate 86 91 76 Respiratory Rate 18 16 Blood Pressure 121/66 115/57 L 116/56 L Pulse Oximetry 99 98 Oxygen Delivery Method Room Air Room Air 03/23/25 15:07 03/23/25 15:08 03/23/25 15:47 Temperature 98.7 F Pulse Rate 97 94 94 Respiratory Rate 16 Blood Pressure 110/60 111/68 111/68 Pulse Oximetry Oxygen Delivery Method BMI result Body Mass Index 37.2 Const General: cooperative, comfortable and no acute distress Orientation/consciousness: patient oriented x3 Limitations: no limitations HENMT Head: Yes normal to inspection, Yes normocephalic and Yes atraumatic Ears: hearing grossly normal bilaterally General nose exam: Normal external nose present Face and sinus: Yes normal facial exam Mouth: Normal oral and palatal mucosa present, oropharynx normal and moist mucous membranes Throat: Yes posterior oropharynx normal Eyes General: appearance normal, both eyes and all related structures Eyelids: Yes eyelids normal Conjunctivae: conjunctivae normal Sclerae: sclerae normal Pupils: Equal, round and reactive pupils present EOM: EOMs intact bilaterally Neck Neck: Yes normal visual inspection, Yes full ROM and Yes no lymphadenopathy Lymphatic: no lymphadenopathy noted Chest Chest palpation & inspection: normal inspection of the chest Resp Effort & Inspection: normal respiratory effort and able to speak in complete sentences Auscultation: clear to auscultation bilaterally, no crackles, no rales, no rhonchi and no wheezes Cardio Rate: regular rate Rhythm: regular rhythm Heart sounds: S1 normal heart sound present and S2 normal heart sound present GI Inspection: Yes normal to inspection Skin General skin exam: no rashes or lesions noted Trauma: no lacerations or abrasions Wounds: no wounds Neuro General: patient oriented x3 and moves all extremities Cranial nerves: Yes Equal, round and reactive pupils present Extrem General: Yes normal to inspection Right upper extremity: normal to inspection Left upper extremity: normal to inspection Right lower extremity: normal to inspection Left lower extremity: normal to inspection Medical Decision Making Medical Decision Making MDM Narrative: This is a 34-year-old female who presents emergency department with concerns of chest tightness. On arrival, vital signs within normal limits. She is speaking full sentences under no acute distress. Patient reporting intermittent chest tightness, she states that she is feeling well. Will obtain labs, EKG, chest x- ray, viral swabs. Differential diagnoses include ACS-unlikely, electrolyte derangement, anxiety, PE-unlikely. Course: Labs returned, she has no leukocytosis, stable H&H, chemistry revealing no significant electrolyte derangement. AST and ALT slightly elevated at 50 and 38, troponin x2 negative. Negative viral swabs. Chest x-ray unremarkable. EKG with no acute ischemic changes. She was not orthostatic. D-dimer negative. Patient has been asymptomatic for several hours since she has been in the emergency room. Patient states that she was able to sleep while she was waiting for her results to returned, she was feeling much better in his currently asymptomatic. Patient reports that she has been under a significant amount of stress in attributes this to her symptoms. I discussed with patient to follow- up with her primary care physician regarding this overall workup, she understands and agrees with plan. Encouraged to return with any new or worsening symptoms. Patient stable for discharge. Differential Diagnosis Differential Diagnoses: The differential diagnosis associated with the presentation includes See above Admission/Observation Consideration of admission/observation: Escalation of care including admission/observation considered Lab Data [facility] Lab Attestation statement: I reviewed the patient's lab results. See [facility] 03/23/25 11:21 03/23/25 11:21 Labs: Lab Results 03/23/25 03/23/25 03/23/25 Range/Units 11:18 11:21 14:11 WBC 6.2 (4.8-10.8) X10*3/uL RBC 4.71 (4.20-5.50) X10*6/uL Hgb 12.5 (12.0-16.0) g/dl Hct 36.8 L (37.0-47.0) % MCV 78.1 L (80.0-98.0) fL MCH 26.5 L (27.0-33.0) pg MCHC 34.0 (31.0-35.0) g/dl RDW 14.4 (11.0-16.0) % Plt Count 216 (160-400) X10*3/uL MPV 10.8 (9.4-12.3) fL Immature Gran % (Auto) 0.5 H (0.0-0.4) % Neut % (Auto) 77.9 H (45-73) % Lymph % (Auto) 14.4 L (20-40) % Prentiss % (Auto) 6.6 (2-11) % Eos % (Auto) 0.3 (0-4) % Baso % (Auto) 0.3 (0-2) % Lymph # (Auto) 0.9 L (1.2-4.9) X10*3/uL Prentiss # (Auto) 0.4 (0.1-1.2) X10*3/uL Eos # (Auto) 0.0 (0.0-0.4) X10*3/uL Baso # (Auto) 0.0 (0.0-0.2) X10*3/uL Abs Immat Gran (auto) 0.03 (0.00-0.03) X10*3/uL Absolute Neuts (auto) 4.8 (2.0-8.3) x10*3/uL Absolute Nucleated RBC 0.000 (0.0-0.012) X10*3/uL Nucleated RBC % (auto) 0.0 (0.0-0.2) /100WBC D-Dimer High Sensitivty 216 NG/ML Sodium 136 (135-145) mmol/L Potassium 4.4 D (3.3-5.1) mmol/L Chloride 109 H (96-108) mmol/L Carbon Dioxide 19 L (22-29) mmol/L Anion Gap 12 (12-20) BUN 8 L (9-16) mg/dL Creatinine 0.62 (0.5-1.4) mg/dL Estim Creat Clear Calc 107.6 Estimated GFR > 60 Random Glucose 108 (60-115) mg/dL Calcium 8.8 (8.4-10.2) mg/dL Magnesium 2.2 (1.6-2.6) mg/dL Total Bilirubin 0.4 (0.0-1.0) mg/dL Direct Bilirubin 0.1 (0.0-0.5) mg/dL AST 50 H (5-31) U/L ALT 38 H (0-31) U/L Alkaline Phosphatase 69 (39-117) U/L Troponin I High Sens < 2.7 < 2.7 (<3.5-17.0) ng/L Total Protein 8.5 H (6.5-8.0) g/dL Albumin 4.6 (3.5-5.0) g/dL Influenza Type A (PCR) NEGATIVE (Negative) Influenza Type B (PCR) NEGATIVE (Negative) RSV RNA Qual (PCR) NEGATIVE (Negative) SARS-CoV-2 RNA (RT-PCR) NEGATIVE (Negative) Independent Interpretation I performed an independent interpretation of an: EKG Interpretation: Normal sinus rhythm at a ventricular rate of 74 beats per minute, CT interval 158, QT QTC 384/426, no STEMI. Radiology Impression Discussion of test interpretation with radiology: I have reviewed the radiologist's reading. Radiologist Impression: Findings: Cardiomediastinal silhouette normal. No consolidations.No pleural effusion. No pneumothorax. No free air under the diaphragms. No acute fracture. Soft tissue is unremarkable. Impression: No acute cardiopulmonary finding. This document has been electronically signed by: Yanet Og MD on 03/23/2025 11:47:39 Dictated By: Yanet Og MD Scores Heart Score History: -0- slightly suspicious ECG: -0- normal Age: -0- < or = 45 Risk factory: -0- no risk factors known Troponin: -0- < or = normal limit Score: 0 Risk: 1.7% Discharge Plan Discharge Clinical Impression: Chest pain Patient Disposition: Home, Self-Care Instructions: Chest Pain (ED) Additional Instructions: You were seen in the emergency department due to chest pain. Your overall workup today was reassuring. It was unclear what is causing you to have the symptoms however this may be due to anxiety however you need to follow-up with your primary care physician. Drink plenty of fluids get plenty of rest. If any new or worsening symptoms occur including but not limited to severe chest pain or shortness of breath, please seek emergent care. Prescriptions: No Action tramadol 50 mg tablet 50 mg PO Q6H PRN (Reason: pain) Qty: 20 0RF ibuprofen 600 mg tablet 600 mg PO Q6H PRN (Reason: fever or pain) Qty: 30 0RF amoxicillin-pot clavulanate 875-125 mg tablet 1 tab PO BID Qty: 20 0RF ibuprofen 600 mg tablet 600 mg PO Q6H PRN (Reason: fever or pain) Qty: 30 0RF prednisone 20 mg tablet 40 mg PO DAILY 5 Days Qty: 10 0RF cyclobenzaprine 10 mg tablet 10 mg PO TID PRN (Reason: muscle spasm) Qty: 14 0RF ibuprofen 600 mg tablet 600 mg PO Q6H PRN (Reason: pain) Qty: 14 0RF acetaminophen 500 mg capsule 1,000 mg PO Q8H PRN (Reason: pain) Qty: 20 0RF morphine 15 mg tablet 15 mg PO Q6H PRN (Reason: pain) Qty: 12 0RF Rx Instructions: Partial Fill upon patient request. acetaminophen 500 mg capsule 1,000 mg PO Q8H PRN (Reason: pain) Qty: 20 0RF ibuprofen 600 mg tablet 600 mg PO Q6H PRN (Reason: pain) Qty: 14 0RF morphine 15 mg tablet 15 mg PO Q6H PRN (Reason: pain) Qty: 12 0RF Rx Instructions: Partial Fill upon patient request. Interventions: ED Discharge Assessment Last Done: 03/23/25 15:47 Discharge Date/Time: 03/23/25 15:50 Print Language: Ukrainian
[2025-03-23 11:29] LABS: MANUAL DIFF FLAG NO
[2025-03-23 11:30] LABS: Hematocrit 36.8 % (37.0-47.0); Hemoglobin 12.5 g/dl (12.0-16.0); Imm Gran Abs Auto 0.03 X10*3/uL (0.00-0.03); Imm Gran Pct Auto 0.5 % (0.0-0.4); Lymphocytes Absolute Auto 0.9 X10*3/uL (1.2-4.9); Mean Corpuscular HGB Conc 34.0 g/dl (31.0-35.0); Mean Corpuscular Hemoglobin 26.5 pg (27.0-33.0); Mean Corpuscular Volume 78.1 fL (80.0-98.0); NRBC Abs Auto 0.000 X10*3/uL (0.0-0.012); NRBC Pct Auto 0.0 /100WBC (0.0-0.2); Platelet Count 216 X10*3/uL (160-400); Red Blood Count 4.71 X10*6/uL (4.20-5.50); White Blood Count 6.2 X10*3/uL (4.8-10.8)
[2025-03-23 11:45] LABS: D Dimer High Sensitivity 216 NG/ML
[2025-03-23 11:53] LABS: Alanine Aminotransferase 38 U/L (0-31); Albumin Level 4.6 g/dL (3.5-5.0); Alkaline Phosphatase 69 U/L (39-117); Anion Gap 12 (12-20); Aspartate Amino Transferase 50 U/L (5-31); Blood Urea Nitrogen 8 mg/dL (9-16); Calcium 8.8 mg/dL (8.4-10.2); Carbon Dioxide 19 mmol/L (22-29); Chloride 109 mmol/L (96-108); Creatinine Clr Calc Pharmacy 107.6; Estimated Glomerular Filt Rate > 60; Magnesium 2.2 mg/dL (1.6-2.6); Potassium 4.4 mmol/L (3.3-5.1); Sodium 136 mmol/L (135-145); Total Protein 8.5 g/dL (6.5-8.0)
[2025-03-23 12:01] LABS: Troponin-I High Sensitivity < 2.7 ng/L (<3.5-17.0)
[2025-03-23 12:10] LABS: Resp Syncy Virus RNA Qual PCR NEGATIVE (Negative); SARS COV2 PCR INHOUSE NEGATIVE (Negative)
[2025-03-23 14:22] VITALS: BP 115/57; PULSE 91; RESP 16; TEMP 36.8; O2SAT 98
[2025-03-23 14:37] LABS: Troponin-I High Sensitivity < 2.7 ng/L (<3.5-17.0)
[2025-03-23 14:57] VITALS: BP 116/56; PULSE 76
[2025-03-23 15:07] VITALS: BP 110/60; PULSE 97
[2025-03-23 15:08] VITALS: BP 111/68; PULSE 94
[2025-03-23 15:47] VITALS: BP 111/68; PULSE 94; RESP 16; TEMP 37.1
== END 2025-03-23 15:50 | disposition home or self-care (01) ==
PROVIDERS: Physician Assistant Medical; Emergency Provider Emergency Medicine; PCP Internal Medicine
DX: R07.9 Chest pain, unspecified (principal); Z03.818 Encounter for observation for suspected exposure to other biological agents ruled out
CPT/HCPCS: 36415; 71046; 80048; 80076; 83735; 84484; 85025; 85379; 87637; 93005; 99283; 99284

== ENCOUNTER → 2025-03-23 10:49 | Outpatient (BNV) | payer OTHER, SELFPAY | PROVIDERS: Emergency Provider Emergency Medicine; PCP Internal Medicine; Visit Provider Radiology Diagnostic Radiology | DX: R07.9 Chest pain, unspecified (principal) | CPT/HCPCS: 71046 ==